=== PATIENT | male | born 1945 | race Caucasian/White ===

== ENCOUNTER 2018-04-27 15:45 | Outpatient (CLI) | payer MEDICARE, BC, SELFPAY | END 2018-04-27 15:46 | PROVIDERS: PCP Internal Medicine; Visit Provider Surgery | DX: K40.90 Unilateral inguinal hernia, without obstruction or gangrene, not specified as recurrent (principal) | CPT/HCPCS: 99203 ==

== ENCOUNTER → 2018-09-21 09:41 | Outpatient (BNVA) | payer MEDICARE, BC, SELFPAY | PROVIDERS: PCP Internal Medicine; Referring Provider Internal Medicine; Visit Provider Surgery | DX: K40.90 Unilateral inguinal hernia, without obstruction or gangrene, not specified as recurrent (principal); J44.9 Chronic obstructive pulmonary disease, unspecified; Z87.891 Personal history of nicotine dependence | CPT/HCPCS: 99213 ==

== ENCOUNTER 2018-10-10 08:44 | Day surgery (SDC) | payer MEDICARE, BC, SELFPAY ==
[2018-10-09 14:45] VITALS: BP 140/71; PULSE 54; RESP 14; TEMP 35.3; O2SAT 93
[2018-10-10 08:59] VITALS: BP 144/80; PULSE 63; RESP 18; TEMP 36.2; O2SAT 92
[2018-10-10] MEDS: Lactated Ringers 1,000 ML 80 ML IV (09:23)
[2018-10-10] MEDS: Bupivacaine LIPOSOME/PF 133 MG/10 ML VIAL IJ ×2 (10:15→11:25)
[2018-10-10] MEDS: Bupivacaine 0.25% Pres-Free 30 ML VIAL (10:15)
--- NOTE | 2018-10-10 11:37 | W.PM.DSUDISC ---
Discharge Plan Disposition Patient Disposition: HOME Condition: Good Discharge Details Reason For Visit: Left inguinal hernia Attending Provider: Kaylee Bach Primary Care Provider: FADI DUTTON Home Meds and New Rx's Prescriptions: New acetaminophen [Tylenol Extra Strength] 500 mg tablet 1,000 mg PO Q8H PRN PRN (Reason: pain) Qty: 30 RF: 0 ibuprofen 600 mg tablet 600 mg PO QID PRN (Reason: pain) Qty: 30 RF: 0 Continued cholecalciferol (vitamin D3) 1,000 unit capsule 1,000 unit PO DAILY RF: 0 gabapentin 400 MG capsule 1,200 mg PO HS RF: 0 calcium carbonate-vitamin D3 1 EACH tablet 1 ea PO DAILY RF: 0 simvastatin 20 MG tablet 20 mg PO DAILY RF: 0 epinephrine [EpiPen 2-Mahamed] 0.3 MG/0.3 ML auto-injector 0.3 mg IM ONCE RF: 0 omega-3 fatty acids-fish oil [Fish Oil] 1 EACH capsule 1 ea PO DAILY RF: 0 Discharge Instructions Instructions: Inguinal Hernia Repair (DC) Additional Instructions: Activity at Home after surgery: 1. Make sure you walk outside at least 4 times per day 2. You should be able to climb a flight of stairs 3. No driving while in pain or taking pain medications 4. No strenuous activity or heavy lifting for 4 weeks (open surgery) Diet, Nutrition, & wound healin. Avoid alcohol until after you are recovered from your surgery 2. Make sure to eat plenty of lean protein (meat, fish, eggs, cottage cheese, beans) 3. Eat a variety of fruits and vegetables. Eat plenty of high fiber foods to avoid constipation. 4. Drink plenty of liquids to stay hydrated and avoid constipation Pain Medications: 1. Tylenol 1000 mg every 8 Hours as needed, may alternate with Ibuprofen 600 mg every 6 hours as needed 2. If a narcotic has been prescribed take as directed only for breakthrough pain For Constipation: 1. Take Milk of Magnesia or MiraLax as needed for constipation Other: 1. You may shower daily. Do not scrub the incisions 2. Do not soak the incisions for 1 week 3. You may alternate ice and heat as needed for pain and swelling Wound Care: 1. Keep the incisions clean and dry Please call our office if you develop: 1. Fevers >101.5 2. Nausea or Vomiting 3. Worsening pain 4. Redness and thick discharge from the wounds If after hours please call the Hospital at and ask to speak to the on-call surgeon Activity:: Activity as Tolerated Diet:: As Tolerated Discharge Orders Discharge Orders: Discharge Order (Routine); Ordered 10/10/18 Ordered By: Kaylee Bach DS: Diagnosis Discharge Diagnosis (1) S/P left inguinal hernia repair: Status: Acute
[2018-10-10 11:40] VITALS: BP 166/63; PULSE 56; RESP 13; TEMP 36.3; O2SAT 97
--- NOTE | 2018-10-10 11:42 | W.PM.OP ---
Date of service: 10/10/18 Time of Service: 10:30 Operative Note DATE OF PROCEDURE: 10/10/18 PRE-OP DIAGNOSIS: Left inguinal hernia POST-OP DIAGNOSIS: other (left indirect and direct inguinal hernia) PROCEDURE: Left inguinal hernia repair with mesh SURGEON: Kaylee Bach GENERAL HARDWARE SALESPERSON: Porsche Granger ANESTHESIA: MAC and regional (TAP block) ESTIMATED BLOOD LOSS: 50 PATHOLOGY: none sent COMPLICATIONS: None Patient was transported to: PACU Patient's condition: stable Implants: [employer] [id number] #[id number] Ref# [id number] Indications: Mr. Johnson is a pleasant 73 year old male who has had a Left inguinal hernia. It has recently started bothering him more and he feels like it has also increased in size. Risks, benefits and complications have been reviewed. Complications include but are not limited to bleeding, infection, injury to vas, vessels and nerves, injury to bowel and adverse reaction to medications. Questions were entertained and answered to their satisfaction and they wished to proceed. Findings: Large direct hernia and small indirect hernia. There was also a cord lipoma noted. Procedure Description: After informed consent was obtained the patient was taken to the operating room and placed in a supine position. Monitors and SCDs were applied and a timeout was done. The patient's name, date of , procedure type, procedure site, allergies to medications, preoperative antibiotic, and DVT prophylaxis were all reviewed. Fire risk was assessed. The patient was placed under MAC sedation with an LMA. Next anesthesia did a tap block on the left side under ultrasound guidance. Please see their separate dictation. Once anesthesia was done the abdomen was prepped and draped in a sterile surgical fashion. Exparel was injected into the dermis in the left lower quadrant. An incision was made with a 10 blade in the left lower quadrant. Dissection was done with cautery through the subcutaneous tissues and Kaci's fascia down to the external oblique fascia. The external ring was identified and the external oblique fascia was opened sharply through the external ring using Metzenbaum scissors. The cut fascia was grasped with hemostats and the cord structures were identified and a Juan M drain was placed around them. The cremasteric muscle was dissected away from the cord structures using both cautery and blunt dissection. A cord lipoma was identified and removed from the cord structures using blunt dissection. pre-peritoneal fat was identified through an indirect defect and this was pushed back into the peritoneum. A 3 x 6 piece of mesh was then cut to size and attached to the conjoined tendon using a 2-0 Prolene double armed suture. The mesh was secured laterally and medially with a 2-0 Prolene, with a running suture. The tails of the mesh were wrapped around the cord structures effectively cinching down the internal ring. Once the mesh was secured the tissues were irrigated with some normal saline. No bleeding was identified. The external oblique fascia was re-approximated using 2-0 Vicryl running suture. The Kaci's fascia was re-approximated using interrupted 3-0 Vicryl. The dermis was re-approximated with a running 4-0 Vicryl. The skin was cleaned and dried and skin affix was applied. The patient was woken up and taken back to recovery in stable condition. There were no immediate complications. Sponge, instrument and needle counts were correct at the end of the case x2.
[2018-10-10 11:45] VITALS: BP 163/98; PULSE 53; RESP 10; TEMP 36.3; O2SAT 99
[2018-10-10 11:50] VITALS: BP 152/82; PULSE 55; RESP 13; TEMP 36.3; O2SAT 99
[2018-10-10] MEDS: fentaNYL 100 MCG/2 ML VIAL IVP (12:04)
[2018-10-10 12:05] VITALS: BP 151/76; PULSE 52; RESP 12; TEMP 36.3; O2SAT 95
[2018-10-10 13:25] VITALS: BP 132/65; PULSE 63; RESP 18; TEMP 35.6; O2SAT 93
== END 2018-10-10 14:08 | disposition home or self-care (01) ==
PROVIDERS: PCP Internal Medicine; Visit Provider Surgery
PROC: (CPT 49505; principal; 2018-10-10 09:30)
DX: K40.90 Unilateral inguinal hernia, without obstruction or gangrene, not specified as recurrent (principal); J44.9 Chronic obstructive pulmonary disease, unspecified; K21.9 Gastro-esophageal reflux disease without esophagitis
CPT/HCPCS: 49505; 76942; C1781; J0690; J1100; J1885; J3010

== ENCOUNTER → 2018-10-26 09:24 | Outpatient (BNVA) | payer MEDICARE, BC, SELFPAY | PROVIDERS: PCP Internal Medicine; Referring Provider Internal Medicine; Visit Provider Surgery | DX: Z48.89 Encounter for other specified surgical aftercare (principal); Z87.19 Personal history of other diseases of the digestive system; R05 Cough; J44.9 Chronic obstructive pulmonary disease, unspecified; Z87.891 Personal history of nicotine dependence ==

== ENCOUNTER 2022-05-28 16:40 | Emergency (ER) | payer MEDICARE, BC, SELFPAY ==
[2022-05-28 16:43] VITALS: BP 170/69; PULSE 68; RESP 18; TEMP 37.6; O2SAT 96
--- NOTE | 2022-05-28 16:45 | RT.EKG_ITS ---
APPROVED REPORT Exam: Resting ECG Reason for Exam: dizziness Patient Location: E HR:59 bpm ECG Measurements Heart Rate 59 AXIS WI 179 P 61 QRSd 104 QRS 2 QT 427 T 40 QTc 423 Conclusion Sinus bradycardia...rate< 60
--- NOTE | 2022-05-28 16:56 | W.ED.GENAD ---
Discharge Plan Disposition Patient Disposition: HOME Condition: Stable Discharge Details Clinical Impression: Dizziness Primary Care Provider: Lu Mercado ED Provider: Tegan Kan Home Meds and New Rx's Prescriptions: New meclizine 25 mg tablet 25 mg PO TID PRN (Reason: dizziness) 7 Days Qty: 21 0RF Rx Instructions: Take one tablet up to three times daily as needed for dizziness. Continued cholecalciferol (vitamin D3) 1,000 unit capsule 1,000 unit PO DAILY gabapentin 400 MG capsule 1,200 mg PO HS calcium carbonate-vitamin D3 1 EACH tablet 1 ea PO DAILY simvastatin 20 MG tablet 20 mg PO DAILY epinephrine [EpiPen 2-Mahamed] 0.3 MG/0.3 ML auto-injector 0.3 mg IM ONCE omega-3 fatty acids-fish oil [Fish Oil] 1 EACH capsule 1 ea PO DAILY acetaminophen [Tylenol Extra Strength] 500 mg tablet 1,000 mg PO Q8H PRN PRN (Reason: pain) Qty: 30 0RF ibuprofen 600 mg tablet 600 mg PO QID PRN (Reason: pain) Qty: 30 0RF Discharge Instructions Instructions: Dizziness (ED) Additional Instructions: At this time labs and CT are within normal limits. Please take the meclizine up to 3 times daily as needed for dizziness. Take the Zofran also as needed for nausea and vomiting. Follow up with primary care provider in 3-5 days. Return to ED sooner if any worsening or concerns. Increase oral fluids. Referrals: Lu Mercado [Primary Care Provider] - 3 days Medical Decision Making 76-year-old male presents to the ER with a chief complaint of feeling unsteady on his feet and nauseous which began this morning after waking up. He reports he did throw up once this morning and then again the afternoon. He denies any headache, chest pain, shortness of breath denies any problems urinating no diarrhea. He describes a sort of discontinuation of his peripheral vision. But he denies any loss of vision. He is alert and oriented x4. EKG was reviewed by Dr. Canales ER attending, no old EKG available for review. Please see his official report. Work-up ordered including troponin, CBC CMP, urinalysis, CT head and neck. Zofran ODT and meclizine 25 mg ordered. CBC and CMP largely within normal limits, initial troponin less than 50, CT within normal limits. No evidence of stenosis or occlusion. Upon patient reevaluation he reports feeling somewhat better. Urinalysis shows no evidence of UTI. Patient discharged with Zofran to go and a prescription for meclizine. Discussed home care and strict return instructions. Patient and family verbalized understanding. This text was generated using [email or web address]comation system, please disregard any oddities of phrase or misspellings. Medical Records Medical records reviewed: Yes I reviewed the patient's medical records. Lab Data Lab results reviewed: Yes I reviewed the patient's lab results. Labs: Laboratory Tests Range/Units 05/28/22 05/28/22 05/28/22 17:08 17:08 19:55 WBC (4.4-10.8) 10^3/uL 6.05 RBC (4.36-5.78) 10^6/uL 5.08 Hgb (13.5-17.5) g/dL 14.8 Hct (40.0-50.0) % 44.9 MCV (80-95) fL 88 MCH (27.0-33.0) pg 29.1 MCHC (32.0-36.0) % 33.0 RDW (11.8-14.1) % 12.3 Plt Count (130-400) 10^3/uL 212 MPV (8.0-11.0) fL 10.1 Immature Gran % 0.3 Neutrophils % 54.6 Lymphocytes % 28.1 Monocytes % 12.4 Eosinophils % 3.8 Basophils % 0.8 Nucleated RBC % (0.0-0.3) % 0.0 Absolute Neutrophils (1.2-6.7) 10^3/uL 3.30 Absolute Lymphocytes (1.2-3.4) 10^3/uL 1.70 Absolute Monocytes (0.1-0.8) 10^3/uL 0.75 Absolute Eosinophils (0.0-0.7) 10^3/uL 0.23 Absolute Basophils (0.0-0.2) 10^3/uL 0.05 Sodium (136-145) mmol/L 140 Potassium (3.5-5.1) mmol/L 4.1 Chloride (98-107) mmol/L 103 Carbon Dioxide (21.0-32.0) mmol/L 29.8 Anion Gap (3-11) mmol/L 7.2 BUN (7-18) mg/dL 12 Creatinine (0.70-1.30) mg/dL 1.1 Est GFR (CKD-EPI 2020) (mL/min/1.73m2) 70.44 Glucose (74-106) mg/dL 85 Calcium (8.5-10.1) mg/dL 8.8 Magnesium (1.8-2.4) mg/dL 2.0 Total Bilirubin (0.2-1.0) mg/dL 0.7 AST (15-37) U/L 25 ALT (16-63) U/L 34 Alkaline Phosphatase (46-116) U/L 71 Troponin I (<or=60) ng/L < 50 Cancelled Total Protein (6.4-8.2) g/dL 7.1 Albumin (3.4-5.0) g/dL 3.8 HPI General Mode of arrival: ambulatory. Date/Time Provider Initiated Documentation: 05/28/22 16:45. Limitations to Documentation: no limitations. Information obtained by: patient and RN notes reviewed. HPI Narrative: 76-year-old male presents to the ER with a chief complaint of feeling unsteady on his feet and nauseous which began this morning after waking up. He reports he did throw up once this morning and then again the afternoon. He denies any headache, chest pain, shortness of breath denies any problems urinating no diarrhea. He describes a sort of discontinuation of his peripheral vision. But he denies any loss of vision. He is alert and oriented x4. He denies any recent head injuries denies any fever or chills. He does have a past medical history of COPD, anemia, gastritis he is a former smoker, he has peripheral neuropathy and Charcot Elaine disease. Related Data Home Medications Medication Instructions Recorded Confirmed EpiPen 2-Mahamed 0.3 mg/0.3 mL 0.3 mg IM ONCE 03/26/18 10/26/18 injection, auto-injector (epinephrine) Fish Oil 340 mg-1,000 mg capsule 1 ea PO DAILY 03/26/18 10/26/18 (omega-3 fatty acids-fish oil) calcium carbonate 600 mg-vitamin 1 ea PO DAILY 03/26/18 10/26/18 D3 5 mcg (200 unit) tablet gabapentin 400 mg capsule 1,200 mg PO HS 03/26/18 10/26/18 simvastatin 20 mg tablet 20 mg PO DAILY 03/26/18 10/26/18 cholecalciferol (vitamin D3) 25 1,000 unit PO DAILY 09/21/18 10/26/18 mcg (1,000 unit) capsule acetaminophen 500 mg tablet 1,000 mg PO Q8H PRN PRN pain #30 10/10/18 10/26/18 (Tylenol Extra Strength) tabs ibuprofen 600 mg tablet 600 mg PO QID PRN pain #30 tabs 10/10/18 10/26/18 meclizine 25 mg tablet 25 mg PO TID PRN dizziness 7 days 05/28/22 #21 tabs Previous Rx's Medication Instructions Recorded acetaminophen 500 mg tablet 1,000 mg PO Q8H PRN PRN pain #30 10/10/18 (Tylenol Extra Strength) tabs ibuprofen 600 mg tablet 600 mg PO QID PRN pain #30 tabs 10/10/18 meclizine 25 mg tablet 25 mg PO TID PRN dizziness 7 days 05/28/22 #21 tabs Allergies Allergy/AdvReac Type Severity Reaction Status Date / Time No Known Allergies Allergy Unverified 05/28/22 16:51 General Stated Complaint: Dizzy/Sync NOÉ: 2 Review of Systems All systems reviewed & are unremarkable except as noted in HPI and below Constitutional Constitutional: Reports as per HPI, Denies frequent falls, Denies headache(s) and Denies weakness ENT Ears, Nose, Mouth, and Throat: Reports dizziness and Denies headache(s) Gastrointestinal Gastrointestinal: Denies abdominal pain, Denies diarrhea, Reports nausea and Reports vomiting Musculoskeletal Musculoskeletal: Reports abnormal gait Neurologic Neurologic: Reports as per HPI, Reports abnormal gait, Reports dizziness, Denies frequent falls, Denies headache(s), Denies localized weakness, Reports other visual disturbances and Denies weakness PFSH All Active Problems Dizziness (Acute) S/P left inguinal hernia repair (Acute ~10/10/18) History of tonsillectomy (Chronic) H/O esophagogastroduodenoscopy (Chronic ~08/2015) Medical History (Updated 05/28/22 @ 19:09 by Tegan Kan NP) Actinic keratosis Anemia Bladder outlet obstruction Charcot-Elaine disease Chronic back pain Chronic gastritis COPD (chronic obstructive pulmonary disease) Dysphagia Former smoker Hyperlipidemia Hypogonadism in male Neuropathy Obesity Osteopenia Pes cavus Sessile colonic polyp (~08/17/15) Surgical History Colonoscopy - IV Sedation (~08/17/15) 2010- polyp 2015- tics and sessile serrated adenoma Repair of inguinal hernia right side x 4 Vasectomy Family History Mother Autoimmune disease Breast cancer Thyroid disease Father Colon cancer Heart disease Hypertension Social History Smoking/Tobacco Use Status: Former Tobacco Use Tobacco: How many years used: 34 Smoking risk assessment performed?: Yes Alcohol Intake: never Drug use: Never Substance use type: does not use Number of Children: 1 Do you feel safe at home: Yes Do you feel safe in your relationship?: Yes Exam Narrative Exam Narrative: Constitutional: Alert and oriented x3. Appears stated age. Normal body habitus. Head: Normocephalic, no trauma. Eyes: Pupils PERRL, Red reflex noted, EOM's intact. Eyelids symmetrical without lesions, discharge, or swelling. ENT: Bilateral TM's WNL, External ear normal to inspection, no mastoid TTP, swelling, or erythema, Nasal turbinates WNL, no nasal discharge. Normal dentition, Posterior pharynx WNL, no exudate. Chest: RRR, Normal S1, S2, distal pulses intact. Resp: Lungs clear to auscultation bilaterally, no wheezes, rales, or rhonchi. Abdomen: Soft, non-distended, Normoactive bowel sounds all 4 quads. Musculoskeletal: Normal gait, 5/5 strength to all four extremities. Skin: No suspicious rashes or lesions. Capillary refill less than 2 sec. Neurologic: Cranial nerves II-XII intact. Alert and oriented x 3. Motor: No deficits noted. Sensory: Intact bilaterally all 4 extremities. Reflexes: DTR's intact bilaterally.. Hematologic/Lymphatic: No ecchymosis, no lymphadenopathy. Course Vital Signs Vital signs: Vital Signs Temperature 37.6 C 05/28/22 16:43 Pulse 68 05/28/22 16:43 Respiratory Rate 18 05/28/22 16:43 Blood Pressure 170/69 H 05/28/22 16:43 Pulse Oximetry 96 05/28/22 16:43 Temperature 37.6 C 05/28/22 16:43 Temperature Source Skin 05/28/22 16:43 Pulse 68 05/28/22 16:43 Respiratory Rate 18 05/28/22 16:43 Blood Pressure 170/69 H 05/28/22 16:43 Blood Pressure Position Sitting 05/28/22 16:43 Pulse Oximetry 96 05/28/22 16:43 Oxygen Delivery Method Room Air 05/28/22 16:43 Oxygen Flow Rate 0 05/28/22 16:43 Pain Level 0 05/28/22 16:43 Comment 05/28/22 16:43
--- NOTE | 2022-05-28 17:00 | DI.CT_ITS ---
Exam(s) CT BRAIN NECK CTA EXAM: CT BRAIN NECK CTA CLINICAL HISTORY: Dizziness, visual disturbances. TECHNIQUE: Imaging Protocol: Axial CT angiography was performed with multi-slice acquisition and mu lti-planar and/or 3D reconstructions. CONTRAST MATERIAL: Intravenous: Omnipaque 350 Contrast volume:structured data in ml COMPARISON: No exams were available for comparison FINDINGS: CTA Neck W: Aortic arch anatomy: The aortic arch anatomy reveals the left vertebral artery originating as an inde pendent vessel off the aortic arch. Anterior circulation: Both common carotid arteries ascend with normal luminal diameters. No stenosis at their origins. At the level the carotid bifurcations there is minimal plaque on the right side with no stenosis in the right carotid system in the neck. The upper right internal carotid artery in the neck is quite tort uous prior to entering the skull base but without mural calcification nor stenosis. The left carotid bifurcation exhibits mild calcified and noncalcified plaque but there is no hemodyna mically significant stenosis at this level nor in the proximal left ICA and the left ICA in the upper neck is patent albeit also tortuous prior to entering the skull base. Posterior circulation: The right vertebral artery is dominant. Both vertebral arteries are patent in the foramen transversa rium. At the skull base the main contributor to the formation of the basilar artery is the dominant right vertebral artery. The left vertebral artery is a thinner vessel at this level. CTA Brain W: Anterior circulation: Both internal carotid arteries are patent in the skull base-carotid canals as well as within the cave rnous sinuses. Supraclinoid aspects are patent. The left A1 segment is dominant. The right A1 segm ent is twig-like. Both anterior cerebral arteries are patent. There is no evidence of aneurysm at t he level of the anterior communicating artery. There does not appear to be significant stenosis in the middle cerebral arteries. No aneurysms. 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 This vessel exhibits a luminal diameter of 3 millimeters. Posterior circulation: Basilar artery is formed predominately by the dominant right vertebral artery. Also receive blood vi a the persistent trigeminal artery described above. No significant stenosis in this vessel. Distall y the basilar artery gives off superior cerebellar arteries and above this level terminates as patent bilateral posterior cerebral arteries. There is no aneurysm of the tip of the basilar artery nor el sewhere in the [id number]. CT BRAIN: There is no evidence of intracranial hemorrhage, mass effect, or shift of midline structures. There are no extra-axial fluid collections. Ventricles are not enlarged or shifted. There are no ring enh ancing lesions in the brain and no abnormal meningeal enhancement. IMPRESSION: 1. Mild plaque at the left carotid bifurcation and proximal left ICA but not hemodynamically signific ant, estimated approximately 10 percent stenosis. No obvious plaque at the carotid bifurcation on th e right side of the neck. Both internal carotid arteries are tortuous in the upper neck prior to ent ering the skull base but without mural calcification or plaque at these levels. 2. Patent intracranial arteries, as detailed above. Also no aneurysms. 3. No acute intracranial findings. No ring enhancing lesions in the brain and no abnormal meningea l enhancement evident. RADIATION DOSE DELIVERED: 2,256.4mGy.cm Total DLP DATA REPOSITORY: All CT scans at this facility are submitted to the National Radiology Data Registry (NRDR) Dose Index Registry (DIR) with the [employer] (ACR). RADIATION OPTIMIZATION: All CT scans at this facility use at least one of these dose optimization te chniques: automated exposure control; mA and/or kV adjustment per patient size (includes targeted exa ms where dose is matched to clinical indication); or iterative reconstruction.
[2022-05-28] MEDS: Meclizine 25 MG TAB PO (17:09)
[2022-05-28 17:44] LABS: Abs Immature Grans 0.02 10^3/uL (0.0-0.06); Absolute Basophil Count 0.05 10^3/uL (0.0-0.2); Absolute Eosinophil Count 0.23 10^3/uL (0.0-0.7); Absolute Monocyte Count 0.75 10^3/uL (0.1-0.8); Basophils % 0.8; Eosinophils % 3.8; HCT 44.9 % (40.0-50.0); HGB 14.8 g/dL (13.5-17.5); Immature Grans % 0.3; Lymphocytes % 28.1; MCH 29.1 pg (27.0-33.0); MCV 88 fL (80-95); MPV 10.1 fL (8.0-11.0); Monocytes % 12.4; Neutrophils % 54.6; Platelet Count 212 10^3/uL (130-400); RBC 5.08 10^6/uL (4.36-5.78); RDW 12.3 % (11.8-14.1); RDW-SD 39.8 fL; WBC 6.05 10^3/uL (4.4-10.8)
[2022-05-28 18:00] LABS: ALT 34 U/L (16-63); AST 25 U/L (15-37); Albumin 3.8 g/dL (3.4-5.0); Alkaline Phosphatase 71 U/L (46-116); Anion Gap 7.2 mmol/L (3-11); BUN 12 mg/dL (7-18); Bilirubin, Total 0.7 mg/dL (0.2-1.0); CO2 29.8 mmol/L (21.0-32.0); CREATININE 1.1 mg/dL (0.70-1.30); Calcium 8.8 mg/dL (8.5-10.1); Chloride 103 mmol/L (98-107); Estimated GFR 70.44 (mL/min/1.73m2); Glucose 85 mg/dL (74-106); Potassium 4.1 mmol/L (3.5-5.1); Sodium 140 mmol/L (136-145); Total Protein 7.1 g/dL (6.4-8.2); Troponin I < 50 ng/L (<or=60)
[2022-05-28] MEDS: Omnipaque 350 MG/ML 100 ML BTL IJ (18:47)
--- NOTE | 2022-05-28 19:03 | DI.VRAD_ITS ---
PROCEDURE INFORMATION: Exam: CTA Head With Contrast, Arteriography Exam date and time: 05/28/2022 6:32 PM Age: 76 years old Clinical indication: Other: Dizziness visual disturbances TECHNIQUE: Imaging protocol: Computed tomographic angiography of the head with contrast. Exam focused on the arteries. 3D rendering (Not supervised by radiologist): MIP and/or 3D reconstructed images were created by the technologist. Radiation optimization: All CT scans at this facility use at least one of these dose optimization techniques: automated exposure control; mA and/or kV adjustment per patient size (includes targeted exams where dose is matched to clinical indication); or iterative reconstruction. Contrast material: 350; Contrast volume: 100 ml; Contrast route: INTRAVENOUS (IV); COMPARISON: No relevant prior studies available. FINDINGS: ANTERIOR CIRCULATION: Right internal carotid artery: Intracranial segment is patent with no significant stenosis. No aneurysm. Right middle cerebral artery: No occlusion or significant stenosis. No aneurysm. Right anterior cerebral artery: Hypoplasia of the A1 segment, a normal variation No occlusion or significant stenosis. No aneurysm. 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 No aneurysm. Left middle cerebral artery: No occlusion or significant stenosis. No aneurysm. Left anterior cerebral artery: No occlusion or significant stenosis. No aneurysm. POSTERIOR CIRCULATION: Right vertebral artery: No occlusion or significant stenosis. No aneurysm. Left vertebral artery: No occlusion or significant stenosis. No aneurysm. Basilar artery: No occlusion or significant stenosis. No aneurysm. Right posterior cerebral artery: No occlusion or significant stenosis. No aneurysm. Left posterior cerebral artery: No occlusion or significant stenosis. No aneurysm. Brain: No definite mass, mass effect, or midline shift. Cerebral ventricles: No ventriculomegaly. Bones/joints: Unremarkable. No acute fracture. Soft tissues: Unremarkable. IMPRESSION: No large vessel stenosis or occlusion. Patent trigeminal artery, a normal variation as described PROCEDURE INFORMATION: Exam: CTA Neck With Contrast Exam date and time: 05/28/2022 6:32 PM Age: 76 years old Clinical indication: Other: Dizziness visual disturbances TECHNIQUE: Imaging protocol: Computed tomographic angiography of the neck with contrast. 3D rendering (Not supervised by radiologist): MIP and/or 3D reconstructed images were created by the technologist. Contrast material: 350; Contrast volume: 100 ml; Contrast route: INTRAVENOUS (IV); COMPARISON: No relevant prior studies available. FINDINGS: Right common carotid artery: No stenosis. No dissection or occlusion. Right internal carotid artery: No stenosis of the extracranial segment. No dissection or occlusion. Right external carotid artery: No occlusion or stenosis of the origin. Left common carotid artery: No stenosis. No dissection or occlusion. Left internal carotid artery: No stenosis of the extracranial segment. No dissection or occlusion. Left external carotid artery: No occlusion or stenosis of the origin. Right vertebral artery: No stenosis. No dissection or occlusion. Left vertebral artery: No stenosis. No dissection or occlusion. Soft tissues: No significant soft tissue swelling. Bones/joints: No acute fracture. IMPRESSION: No stenosis or occlusion. REFERENCES: NASCET CRITERIA. The degree of stenosis in the cervical segment of the internal carotid artery is based on NASCET criteria. Normal is no stenosis. Mild is less than 50% stenosis. Moderate is 50-69% stenosis. Severe is 70% to 99% stenosis. Total occlusion is no detectable patent lumen. Dictated and Authenticated by: Daniel Cobb MD. Ordering:RAMEZ Javed MD
[2022-05-28 19:31] LABS: Bilirubin Negative (Negative); Blood Negative (Negative); Clarity Clear (Clear); Glucose Negative (Negative); Ketones Negative (Negative); Leukocyte Esterase Negative (Negative); Nitrite Negative (Negative); Urobilinogen 0.2 EU/dL (Up TO 0.2); pH 6.5 (5-8)
[2022-05-28 19:48] VITALS: BP 134/72; PULSE 57; RESP 18; O2SAT 96
== END 2022-05-28 19:50 | disposition home or self-care (01) ==
PROVIDERS: Emergency Provider Registered Nurse Emergency; PCP Internal Medicine
DX: R42 Dizziness and giddiness (principal); R11.0 Nausea; J44.9 Chronic obstructive pulmonary disease, unspecified; Z87.891 Personal history of nicotine dependence
CPT/HCPCS: 36415; 70496; 70498; 80053; 93005; 99285; 81003; 83735; 84484; 85025; 93010; 99284; J3490